=== PATIENT | male | born 1940 | race Caucasian/White ===

== ENCOUNTER 2018-11-04 06:00 | Inpatient (IN) | payer OTHER, MEDICARE ==
[2018-10-29 12:37] VITALS: BMI 25.0
[~2018-11-04 06:00] MED LIST: oxyCODONE HCL 10 MG SUSTAINED ACTING TABLET PO ONE
[2018-11-04] MEDS ORDERED: CEFAZOLIN 2 GM in DEXTROSE 5%-WATER - 100 ML IVPB ONE (06:30)
[2018-11-04] MEDS ORDERED: oxyCODONE HCL 10 MG SUSTAINED ACTING TABLET PO STA (06:30)
[2018-11-04] MEDS ORDERED: PROPOFOL 20 ML ONE (07:01)
[2018-11-04] MEDS ORDERED: BUPIVACAINE HCL/PF 0.5% (5MG/ML) 10 ML VIAL ONE (07:02)
[2018-11-04] MEDS ORDERED: MIDAZOLAM HCL 2 MG/2 ML SINGLE DOSE VIAL ONE (07:12)
[2018-11-04] MEDS ORDERED: BUPIVACAINE LIPOSOME/PF (EXPAREL) 266 MG/20 ML VIAL ONE (07:12)
--- NOTE | 2018-11-04 07:41 | HP ---
History & Physical Update - History History: No Change - Physical Physical: No Change - Assessment Assessment: No Change - Plan Plan: No Change (Initial H&P is located in his paper chart. Complete/accurate and UTD. No new complaints or medications. Here today for elective repair of his L2/3 spondy with RLE radiculopathy)
[2018-11-04] MEDS ORDERED: ceFAZolin SODIUM 1 GM VIAL ONE (08:45)
[2018-11-04] MEDS ORDERED: EPHEDRINE SULFATE/0.9% NACL/PF 50 MG/10 ML SYRINGE NR ONE (09:22)
[2018-11-04] MEDS ORDERED: GUM MASTIC/STORAX/MSAL/ALCOHOL 1 DRP DROPSBTL MC ONE (10:21)
--- NOTE | 2018-11-04 10:32 | OP ---
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
[2018-11-04] MEDS ORDERED: oxyCODONE HCL 5 MG TABLET PO PRN ×3 (10:33→10:47)
[2018-11-04] MEDS ORDERED: KETOROLAC TROMETHAMINE 30 MG/1 ML VIAL IVPUSH PRN (10:33)
[2018-11-04] MEDS ORDERED: ONDANSETRON 4 MG/2 ML VIAL IVPUSH PRN ×2 (10:33→10:47)
--- NOTE | 2018-11-04 10:33 | SURG ---
Surgery Flight Surgeon Note Flight Surgeon: Hipolito Shell PA-C Date of Service: 11/04/18 Diagnosis: L2/3 spondylolithesis w/ RLE radiculoapthy Procedure: LEFT L2/3 TLIF, allograft implant, neuromonitoring I was present for the entirety of the operative procedure. For further detail, please refer to operative report. Visit type - Case Type Case Type: Scheduled - New patient This patient is new to me today: Yes Date on this admission: 11/04/18
[2018-11-04] MEDS ORDERED: LACTATED RINGERS SOLUTION 1,000 ML IV SCH (10:45)
[2018-11-04] MEDS ORDERED: PROMETHAZINE HCL 25 MG/1 ML VIAL IVPUSH PRN (10:47)
--- NOTE | 2018-11-04 12:57 | OP ---
DATE OF OPERATION: 11/04/2018 PREOPERATIVE DIAGNOSIS: Spinal stenosis L2-3. POSTOPERATIVE DIAGNOSIS: Spinal stenosis L2-3. PROCEDURE PERFORMED: 1. Transforaminal lumbar interbody fusion L2-3. 2. Placement of instrumentation. 3. Placement of prosthetic cage. 4. Revision decompression, L2-3. SURGEON: Paxton Sarmiento MD PRESCHOOL ASSISTANT: MARCIN Benitez ESTIMATED BLOOD LOSS: 50 mL. IV FLUIDS: Per Anesthesia. ANESTHESIA: Spinal/TLIP. COMPLICATIONS: There were none. DISPOSITION: Patient was brought to the PACU in stable condition. INDICATIONS FOR SURGERY: The patient is a 78-year-old gentleman who has been suffering from pain from his back down his right leg. He had previously had a lumbar decompression and fusion. He had gone through an exhaustive course of treatment for this, which included medications, physical therapy as well as injections. Unfortunately, his pain continued to persist despite all this. At this point, risks, benefits, and alternatives were discussed, and the patient consented to surgery. DESCRIPTION OF PROCEDURE: The patient was brought to the operating room by the Anesthesia staff. After appropriate patient identification was performed, spinal anesthesia was given. A TLIP block was also given. The patient was able to position herself prone onto the OR table with all areas and bony prominences well padded at this time. Two needles were placed in his back to stevan off the L2-3 segments. X-ray marked off the L2-3 pedicles. His back was prepped and draped in a sterile manner. At this point, a time-out was completed. An incision was made on the left side down to the pedicles. The fascia was exposed at this time. Under C-arm guidance, trocars were advanced into both the L2 and L3 pedicles so the trocars and wires were performed. Over the wire, tap was performed and screws were inserted. On the right-hand side, retractor blades were set up to expose the L2-3 facet joint. The facet joint was removed with a bur. The disk was visualized. It was entered. Using a series of pituitaries, Kerrisons, and curettes, diskectomy was completed. Endplates were decorticated at this time. Bone graft was laid down. A cage-filled bone graft was placed in. At this point, Kerrison was used to do further decompression, and a revision decompression was performed, and the thecal sac was decompressed. A walter was measured and placed in. Caps and compression were applied. All x-ray instrumentation was removed. AP and lateral x-rays confirmed the instrumentation to be in good position. Final tightening was performed. The fascia was closed with a No. 1 Vicryl suture. Subcutaneous tissues were closed with 2-0 Vicryl suture. Skin was closed with 3-0 Monocryl suture. Dermabond was applied. Steri-Strips were applied. A sterile dressing was applied. Patient was placed supine on the OR bed, brought to the PACU in stable condition. PAXTON SARMIENTO M.D. [id number]
[2018-11-04] MEDS: diazePAM 2 MG TABLET PO SCH (13:04)
[2018-11-04] MEDS: ACETAMINOPHEN 325 MG TABLET (FP) PO SCH ×3 (16:39→22:07)
[2018-11-04] MEDS: oxyCODONE HCL 5 MG TABLET PO PRN ×2 (16:39→20:30)
[2018-11-04] MEDS: DOXYCYCLINE HYCLATE 100 MG CAPSULE PO SCH (18:03)
[2018-11-04] MEDS: CEFAZOLIN 2 GM/D5W 2 GM/50 ML ML IVPB SCH (18:04)
[2018-11-04] MEDS ORDERED: ESZOPICLONE 2 MG PO SCH (22:00)
[2018-11-04] MEDS ORDERED: ATORVASTATIN CA 80 MG TABLET (FP) PO SCH (22:00)
[2018-11-04] MEDS: CARVEDILOL 6.25 MG TABLET (FP) PO SCH (22:07)
[2018-11-04] MEDS: SOTALOL HCL 80 MG TABLET (FP) PO SCH (22:07)
[2018-11-05] MEDS: CEFAZOLIN 2 GM/D5W 2 GM/50 ML ML IVPB SCH ×2 (01:16→09:30)
[2018-11-05] MEDS: diazePAM 2 MG TABLET PO SCH (01:16)
[2018-11-05] MEDS: ACETAMINOPHEN 325 MG TABLET (FP) PO SCH ×2 (03:50→12:10)
[2018-11-05] MEDS: oxyCODONE HCL 5 MG TABLET PO PRN ×2 (04:45→07:38)
[2018-11-05] MEDS ORDERED: APIXABAN 5 MG TABLET PO SCH (07:00)
--- NOTE | 2018-11-05 07:43 | DS ---
Physical Exam: SUBJECTIVE: Patient seen and examined. In bed resting comfortably. C/o mild incisional tenderness. Adequate pain control with PRN medications. States the numbness and tingling he was having down his RLE has completely resolved. He's been OOB and ambulating unassisted. Voiding spontaneously. Tolerating PO diet. Denies n/v/f/c, CP, SOB or MISHRA. OBJECTIVE: Vital Signs Temperature 98.1 F 11/05/18 07:00 Pulse Rate 55 L 11/05/18 07:00 Respiratory Rate 18 11/05/18 07:00 Blood Pressure 106/53 L 11/05/18 07:00 O2 Sat by Pulse Oximetry (%) 95 11/05/18 07:02 PHYSICAL EXAM GENERAL: The patient is awake, alert, and fully oriented, in no acute distress. HEAD: Normal with no signs of trauma. EYES: PERRL, extraocular movements intact, sclera anicteric, conjunctiva clear. ENT: Ears normal, nares patent, oropharynx clear without exudates, moist mucous membranes. NECK: Trachea midline, full range of motion, supple. LUNGS: Breath sounds equal, clear to auscultation bilaterally, no wheezes, no crackles, no accessory muscle use. HEART: Regular rate and rhythm, S1, S2 without murmur, rub or gallop. ABDOMEN: Soft, nontender, nondistended, normoactive bowel sounds, no guarding, no rebound, no hepatosplenomegaly, no masses. EXTREMITIES: 2+ pulses, warm, well-perfused, no edema. NEUROLOGICAL: Cranial nerves II through XII grossly intact. Normal speech, gait not observed. PSYCH: Normal mood, normal affect. SKIN: Dressing c/d/i. LABS HOSPITAL COURSE: Date of Admission:11/04/18 Date of Discharge: 11/05/18 The patient was admitted to the Med-Surg Unit after an elective repair of their L2/3 spondylolithesis. Now, s/p Left L2/3 TLIF, allograft implant, neuromonitoring. The day of surgery, the patient ambulated the hallways with assistance. Narcotic and non-narcotic pain management control was achieved with an oral and IV approach. POD #0, an xray was obtained and confirmed hardware placement at LEFT L2/3, no fractures or dislocations. Anabela-operative IV ABX were administered. DVT prophylaxis was achieved with SCDs and early ambulation. The patient ambulated with Physical Therapy and no services were recommended upon discharge. Narcotic scripts and or muscle relaxants were checked with CTS STONE OPERATOR prior to escibe. The discharge instructions and an oral pain management plan were reviewed with the patient. All questions answered. Above plan discussed with Dr. Sarmiento and agreed. Minutes to complete discharge: 35 Visit type - Case Type Case Type: Scheduled
[2018-11-05 07:50] LABS: CALCIUM 8.5 mg/dl (8.5-10); CREATININE 0.9 mg/dl (0.55-1.3); POTASSIUM 3.8 mmol/L (3.5-5.1)
[2018-11-05 07:54] LABS: HEMOGLOBIN 13.9 GM/dl (11.7-16.9); MCH 31.2 pg (25.7-33.7); MEAN CELL VOLUME 94.3 fl (80-96); PLATELET COUNT 129 K/MM3 (134-434); RBC 4.45 M/mm3 (4.00-5.60); RDW 13.5 % (11.9-15.9); WHITE BLOOD COUNT 8.5 K/mm3 (4.0-10.8)
[2018-11-05] MEDS: SOTALOL HCL 80 MG TABLET (FP) PO SCH (09:29)
[2018-11-05] MEDS: DOXYCYCLINE HYCLATE 100 MG CAPSULE PO SCH (09:30)
[2018-11-05] MEDS: CARVEDILOL 6.25 MG TABLET (FP) PO SCH (09:30)
[2018-11-05 09:34] VITALS: BP 124/56; PULSE 65; TEMP 97.8
[2018-11-05] MEDS ORDERED: EZETIMIBE 10 MG TABLET (FP) PO SCH (10:00)
[2018-11-05] MEDS ORDERED: TRIAMTERENE AND HCTZ - 37.5 MG/25 MG CAPSULE PO SCH (10:00)
[2018-11-05] MEDS ORDERED: LISINOPRIL 20 MG TABLET (FP) PO SCH (10:00)
== END 2018-11-05 12:17 | disposition home or self-care (01) | DRG 455 ==
LOC: FM/S 06:00
PROVIDERS: ADMIT Orthopaedic Surgery Orthopaedic Surgery of the Spine; ATTEND Orthopaedic Surgery Orthopaedic Surgery of the Spine
PROC: 0SG00K1 Fusion of Lumbar Vertebral Joint with Nonautologous Tissue Substitute, Posterior Approach, Posterior Column, Open Approach (ICD-10-PCS; 2018-11-04)
PROC: 0SB20ZZ Excision of Lumbar Vertebral Disc, Open Approach (ICD-10-PCS; 2018-11-04)
PROC: 00NY0ZZ Release Lumbar Spinal Cord, Open Approach (ICD-10-PCS; 2018-11-04)
PROC: 4A11X4G Monitoring of Peripheral Nervous Electrical Activity, Intraoperative, External Approach (ICD-10-PCS; 2018-11-04)
PROC: 0SG00AJ Fusion of Lumbar Vertebral Joint with Interbody Fusion Device, Posterior Approach, Anterior Column, Open Approach (ICD-10-PCS; principal; 2018-11-04 09:15)
DX: M48.061 Spinal stenosis, lumbar region without neurogenic claudication (principal); M43.16 Spondylolisthesis, lumbar region; E78.00 Pure hypercholesterolemia, unspecified; I11.0 Hypertensive heart disease with heart failure; Z86.718 Personal history of other venous thrombosis and embolism; Z86.711 Personal history of pulmonary embolism
CPT/HCPCS: 36415; 72100-TC-FY; 80048; 85027; 94760; 97116-GP; 97162-GP